=== PATIENT | female | born 1955 | race Two or more races ===

== ENCOUNTER → 2024-12-24 | Outpatient (CLI) | payer MEDICARE, SELFPAY ==
--- NOTE | 2024-12-24 11:00 | XR_ITS ---
Examination: Screening digital mammography, bilateral Computer aided detection 3-D breast Tomosynthesis, bilateral Date and time of exam: December 24, 2024 1031 hours Compared to mammograms dating to August 14, 2013 Indication: Screening Technique: Nonmagnified MLO, CC views of the breasts to been obtained, reconstructed from 3-D Tomosynthesis images. R2 computer aided detection program utilized for evaluation of suspicious masses and/or abnormal calcifications. 3-D Tomosynthesis images obtained. Findings: Scattered areas of fibroglandular density. Benign calcifications. No interval suspicious masses Impression: BI-RADS category II: Benign Findings. Recommend 1 year follow-up mammogram.
== END | disposition home or self-care (01) ==
LOC: CDIM 10:23
PROVIDERS: Referring Provider Internal Medicine; Visit Provider Internal Medicine
DX: Z12.31 Encounter for screening mammogram for malignant neoplasm of breast (principal); R92.323 Mammographic fibroglandular density, bilateral breasts; R92.1 Mammographic calcification found on diagnostic imaging of breast
CPT/HCPCS: 77063; 77067

== ENCOUNTER 2025-04-17 10:25 | Emergency (ER) | payer MEDICARE, SELFPAY ==
[2025-04-17 11:37] VITALS: BP 145/85; PULSE 60; RESP 18; TEMP 36.8; O2SAT 96; BMI 30.3
--- NOTE | 2025-04-17 11:41 | EKG_ITS ---
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1955 Requested By: Horacio Copeland Order Number: [id number] Reading MD: Horacio Copeland Measurements Intervals Moffit Rate: 66 P: 7 ID: [id number] QRS: -13 QRSD: 95 T: -2 QT: 380 QTc: 400 Interpretive Statements SINUS RHYTHM LOW QRS VOLTAGE IN PRECORDIAL LEADS [QRS DEFLECTION < 1.0 mV IN CHEST LEADS] INCOMPLETE RIGHT BUNDLE BRANCH BLOCK [90+ ms QRS DURATION, TERMINAL R IN V1/V2, 40+ ms S IN I/aVL/V4/V5/V6] MODERATE VOLTAGE CRITERIA FOR LVH, CONSIDER NORMAL VARIANT [MEETS CRITERIA IN ONE OF: R(aVL), S(V1), R(V5), R(V5/V6)+S(V1)] POSSIBLE ANTERIOR MYOCARDIAL INFARCTION , OF INDETERMINATE AGE [30 ms Q WAVE IN V3/V4, OR R < 0.2 mV IN V4] Compared to ECG 03/11/2021 07:19:43 Incomplete right bundle-branch block now present Myocardial infarct finding now present /store/S0/[id number]/ecg/[id number].pdf
--- NOTE | 2025-04-17 11:41 | XR_ITS ---
Examination: CT brain head without contrast. 2-D sagittal coronal reconstructions Date and time of exam: 04/17/2025 at 12:14 p.m.: CTDI: vol (mGy): 52.3 DLP: (mGycm): 1063 CLINICAL HISTORY: Onset dizziness today Comparison study none 08/05/2012 Technique: Multiple CT axial sections of the brain have been obtained, 5 mm slice thickness. Contrast has not been administered. 2-D sagittal, coronal reconstructions have been obtained Low dose protocols were performed. One or more of the following dose reduction techniques were used; automated exposure control, adjustment of the mA and/or KV according to patient size, use of iterative reconstruction technique. Findings: No significant ventricular enlargement. Intra-axial or extra-axial hemorrhage density is not seen. No mass effect or midline shift Basal cisterns are not remarkable. Fourth ventricle is midline. Cranial vault intact. Impression: Negative for acute hemorrhage, mass effect or midline shift 2 there is a 17 mm diameter mucous retention cyst in the left maxillary sinus and there is a very tiny dependent layer of fluid posteriorly in the left sphenoid sinus
--- NOTE | 2025-04-17 11:43 | EDNOTE_ITS ---
ED Dizzyness RME/HPI General Chief Complaint: Dizziness Stated Complaint: DIZZINESS & VOMITING X5 DAYS Time Seen by Provider: 04/17/25 11:20 Arrival date/time: 04/17/25 10:25 69-year-old female patient with significant history of hypertension, was advised by PCP to read told to emergency room for worsening dizziness. Patient has been having dizziness for the last 5 days, described as everything spinning, with headache more on the posterior headache. Severity mild. Patient was seen by PCP and was prescribed meclizine which the patient was taking. No improvement of the dizziness and vertigo noted. Patient denies any trauma denies any fall denies any other slurring speech patient is ambulatory unaided. Was also noted to be vomiting on and off for the last 5 days. Denies any diarrhea denies any chest pain or abdominal pain Related Data Home Medications ?Medication ?Instructions ?Recorded ?Confirmed ascorbic acid (vitamin C) 500 mg 500 mg PO QDAY 03/11/21 capsule,extended release (Vitamin C) lisinopril 5 mg tablet 5 mg PO QDAY 03/11/21 Previous Rx's ?Medication ?Instructions ?Recorded oxycodone-acetaminophen 5 mg-325 1 tab PO Q8H PRN pain #14 tabs 03/11/21 mg tablet (Percocet) tamsulosin 0.4 mg capsule (Flomax) 0.4 mg PO QDAY #30 caps 03/11/21 amoxicillin 875 mg-potassium 1 tab PO BID #14 tabs 04/30 clavulanate 125 mg tablet fexofenadine 60 mg-pseudoephedrine 1 tab PO Q12H PRN n chato congestion 04/17/25 ER 120 mg tablet,ext.release,12 hr #14 tabs (Olive-D 12 Hour) Allergies Allergy/AdvReac Type Severity Reaction Status Date / Time No Known Allergies Allergy Verified 03/11/21 09:25 Review of Systems Review of Systems Narrative Review of Systems: Review of system reviewed and within normal limits except mentioned in HPI ED Exam Narrative Physical exam: VITAL SIGNS: Reviewed. GENERAL APPEARANCE: Alert and interactive, follows commands, no acute distress, HEAD AND FACE: Non-traumatic. ENT: PERRL, pink conjunctivitis, eyelid no trauma, Mucous membrane moist. No nystagmus noted NECK: Supple, nontender, no nuchal rigidity. CHEST: No tenderness, no crepitus, no paradoxical movement, no retractions. LUNGS: Clear, well ventilated, symmetric, no rales, no wheezing, no ronchi, no stridor, good breath sounds bilaterally. HEART: Regular rate, regular rhythm, no murmur, no gallops. ABDOMEN: Soft, positive bowel sounds, nondistended, no guarding, nontender, no rebound, no masses, RECTAL: Deferred. GENITAL: Deferred. NEUROLOGICAL: Gross motor function intact sensory function intact, Appropriate for age. Negative Romberg's test MUSCULOSKELETAL: low back nontender, full range of motion. EXTREMITIES: Nontender, full range of motion. SKIN: Color pink, dry, no rash, no lacerations, no abrasions, no contusions. LYMPHATICS: Deferred. Course Quality Measures none Orders Category Date Time Status EKG (ED ONLY) *Do not use* NOW Care 04/17/25 11:[address] head/brain wo con Stat Exams 04/17/25 11:41 Completed EKG (ED Only) Stat Exams 04/17/25 11:41 Draft CBC Stat Lab 04/17/25 11:52 Completed Comprehensive Metabolic Panel Stat Lab 04/17/25 11:52 Completed Partial Thromboplastin Time Stat Lab 04/17/25 11:52 Completed Troponin I Stat Lab 04/17/25 11:52 Completed Urinalysis, C/S if Indicated Stat Lab 04/17/25 12:26 Completed Acetaminophen Tab [Tylenol ES Tab] Med 04/17/25 11:42 Discontinued 1,000 mg PO X1 ONE Ondansetron Odt [Zofran Odt] Med 04/17/25 11:42 Discontinued 4 mg PO X1 ONE Ringers Lactated 1000 ml [Lactated Ringers] 1,000 ml Med 04/17/25 11:42 Discontinued IV 999 mls/hr Scopolamine [Transderm-Scop Patch] Med 04/17/25 11:42 Discontinued 1 mg TOP X1 ONE Vital Signs Vital signs: Vital Signs Temperature 98.3 F 04/17/25 11:37 Pulse Rate 60 04/17/25 11:37 Respiratory Rate 18 04/17/25 11:37 Blood Pressure 145/85 H 04/17/25 11:37 Pulse Oximetry (%) 96 04/17/25 11:37 Oxygen Delivery Method Room Air 04/17/25 11:37 Dizziness MDM Narrative MDM Narrative:: 69-year-old female patient with significant history of hypertension, was advised by PCP to read told to emergency room for worsening dizziness. Patient has been having dizziness for the last 5 days, described as everything spinning, with headache more on the posterior headache. Severity mild. Patient was seen by PCP and was prescribed meclizine which the patient was taking. No improvement of the dizziness and vertigo noted. Patient denies any trauma denies any fall denies any other slurring speech patient is ambulatory unaided. Was also noted to be vomiting on and off for the last 5 days. Denies any diarrhea denies any chest pain or abdominal pain Patient's laboratory workup came back normal including troponin which is normal, EKG showed normal sinus rhythm, ventricular rate of [address] segment elevation or depression noted. CT scan of the head came back with no acute pathology except for retention cyst in the left maxillary sinus and sphenoid sinusitis. Patient was given a copy of her CT scan. Patient will be prescribed home on Augmentin and Olive-D. Patient was given scopolamine patch with significant improvement of symptoms. Patient data External records reviewed:: None Clinical information provided by:: patient Social determinants that could affect healthcare access:: none Patient has the following chronic illnesses:: Hypertension How is presenting disease/condition affected by chronic disease/condition?: uneffected by Evaluation data The following diagnostics were reviewed and interpreted by me:: lab results, radiology exam(s) and EKG tracing(s) Lab and/or radiology exams considered but not ordered:: None Interpretation Summary: See above Medications / Prescriptions Medications or Prescriptions considered but not ordered:: None Medication administrations:: Medication Administration History Discontinued Medications Acetaminophen (Acetaminophen 500 Mg Tablet) 1,000 mg PO X1 ONE Stop: 04/17/25 11:43 Last Admin: 04/17/25 12:27 Dose: 1,000 mg Documented By: Lactated Ringer's (Lactated Ringers) 1,000 mls @ 999 mls/hr IV .Q1H1M ONE Stop: 04/17/25 12:42 Ondansetron HCl (Ondansetron Odt 4 Mg Tabrap) 4 mg PO X1 ONE; Protocol Stop: 04/17/25 11:43 Last Admin: 04/17/25 12:28 Dose: 4 mg Documented By: Scopolamine (Scopolamine 1 Mg Tdsy) 1 mg TOP X1 ONE Stop: 04/17/25 11:43 Last Admin: 04/17/25 12:27 Dose: 1 mg Documented By: Scopolamine patch, Tylenol Zofran and IV fluids Consultations Consultation(s) initiated? (list below): No Diagnosis Dizziness Differential Diagnosis: benign paroxysmal positional vertigo and other (Vertigo, sinusitis) Most likely diagnosis given after review of the tests above:: Mucous retention cyst maxillary sinus, right, sinusitis sphenoid Admission Indicated Admission indicated?: not indicated Admission Request Was there a request for admission?: No Disposition Plan Disposition Plan: Discharge Discharge Attestation Discharge Attestation: The patient was given an opportunity to ask questions and understood the discharge instructions. Discharge instructions specifically effects, indications for sooner follow up or return to the emergency department, and the expected course of current diagnosis. Patient condition: Stable Discharge Plan Plan Patient Disposition: HOME (Self Care) Discharge Disposition comment: stable Prescriptions/Referrals Prescriptions/Med Rec: New amoxicillin-pot clavulanate 875-125 mg tablet 1 tab PO BID Qty: 14 0RF fexofenadine-pseudoephedrine [Olive-D 12 Hour] 60-120 mg tablet extended release 12 hr 1 tab PO Q12H PRN (Reason: nasal congestion) Qty: 14 0RF No Action tamsulosin [Flomax] 0.4 mg capsule 0.4 mg PO QDAY Qty: 30 0RF oxycodone-acetaminophen [Percocet] 5-325 mg tablet 1 tab PO Q8H MDD 4 PRN (Reason: pain) Qty: 14 0RF lisinopril 5 mg tablet 5 mg PO QDAY ascorbic acid (vitamin C) [Vitamin C] 500 mg Capsule, Extended Release 500 mg PO QDAY Referrals: Avelina Cramer MD [Primary Care Provider] - In 1 week Problem List Clinical Impression: Vertigo, Mucous retention cyst of maxillary sinus, Sinusitis Patient/Caregiver Discharge Instructions Discharge Activity: activity as tolerated Education Materials: Causes of Sinusitis Additional Instructions: Thank you for the opportunity for serving you today. You are stable for discharged . You are advised to: Follow-up with your PCP in 1 to 2 days Return to ED for worsening of symptoms Increase oral fluids Take medication as prescribed Please remove your scopolamine patch in 3 days Print Language: Tunisian Stand Alone Forms: [employer] Award Info., Patient Portal Info Letter PA/ASSOCIATE [employer]ES Supervising Physician PA/ASSOC[employer]ATE [employer] Supervising Physician: MD Claudia
[2025-04-17 12:03] LABS: Basophils # (Auto) 0.0 Thou/mm3 (0.0-0.2); Basophils % (Auto) 1 % (0-2.5); Eosinophils # (Auto) 0.2 Thou/mm3 (0.0-0.5); Eosinophils % (Auto) 4 % (0-10); Hematocrit 39.1 % (36.0-46.0); Hemoglobin 13.0 g/dL (12.0-16.0); Immature Granulocytes Auto 0.01 Thou/mm3 (0.00-0.00); Lymphocytes # (Auto) 2.0 Thou/mm3 (1.0-4.8); Lymphocytes % (Auto) 35 % (10-50); Mean Corpuscular HGB Conc 33.2 g/dl (31.0-37.0); Mean Corpuscular Hemoglobin 31.3 pg (25.0-35.0); Mean Corpuscular Volume 94 fL (80-100); Monocytes # (Auto) 0.4 Thou/mm3 (0.0-0.8); Monocytes % (Auto) 7 % (0-12); Neutrophils # (Auto) 3.0 Thou/mm3 (1.8-7.7); Neutrophils % (Auto) 53 % (37-80); Nucleated Red Blood Cell # 0.00 Thou/mm3 (0.00-0.00); Nucleated Red Blood Cell % 0 /100 WBC (0); Platelet Count 168 Thou/mm3 (140-440); RDW Standard Deviation 45.1 fL (36.4-46.3); Red Blood Count 4.16 Miln/mm3 (4.00-5.20); White Blood Count 5.7 Thou/mm3 (3.6-11.0)
[2025-04-17 12:24] LABS: Partial Thromboplastin Time 31.7 Seconds (22.0-36.0)
[2025-04-17] MEDS: ACETAMINOPHEN 500 MG TABLET 1000 MG PO (12:27)
[2025-04-17] MEDS: SCOPOLAMINE 1 MG TDSY TOP (12:27)
[2025-04-17] MEDS: ONDANSETRON ODT 4 MG TABRAP PO (12:28)
[2025-04-17 12:36] LABS: Collection Type, Urine Clean Catch
[2025-04-17 12:41] LABS: Bilirubin,Urine Negative (Negative); Blood,Urine Trace (Negative); Clarity,Urine Clear (Clear/Hazy); Color,Urine Colorless (Lt Yel-Yel); Culture Indicated,Urine Not Indicated; Glucose, Urine Negative (Negative); Ketones,Urine Negative (Negative); Leukocyte Esterase,Urine Negative (Negative); Nitrite,Urine Negative (Negative); PH,Urine 6.5 (5.0-7.0); Protein,Urine Negative (Neg - Trace); RBC,Urine 2 /hpf (0-3); Specific Gravity,Urine 1.007 (1.001-1.035); Squamous Epithelial Cell,Urine < 1 /hpf (0-5); Urobilinogen,Urine Negative mg/dL (0.0-1.0); WBC,Urine 1 /hpf (0-5)
[2025-04-17 12:48] LABS: Alanine Aminotransferase < 7 U/L (10-49); Albumin, Serum 4.2 gm/dL (3.4-4.8); Albumin/Globulin Ratio 1.2 (1.2-2.2); Alkaline Phosphatase 53 U/L (46-116); Anion Gap 7 (7-16); Aspartate Amino Transferase 15 U/L (0-34); BUN/Creatinine Ratio 14 Ratio (12-20); Bilirubin,Total 0.4 mg/dL (0.3-1.2); Blood Urea Nitrogen 11 mg/dL (9-23); Calcium 9.5 mg/dL (8.3-10.6); Calcium (Corrected) 9.5 mg/dL (8.5-10.1); Carbon Dioxide 26.0 mMol/L (20.0-31.0); Chloride 108 mMol/L (98-107); Creatinine (Component) 0.8 mg/dL (0.6-1.3); Estimated Creatinine Clearance 67.4 mL/min (>60); Globulin 3.5 gm/dL (2.3-3.5); Glucose 93 mg/dL (74-106); Osmolality,Calculated 280 (275-295); Potassium 4.3 mMol/L (3.4-5.1); Sodium 141 mMol/L (136-145); Total Protein 7.7 gm/dL (5.7-8.2); Troponin I < 0.020 ng/mL (0.0-0.045); eGFR > 60 See Note
== END 2025-04-17 14:03 | disposition home or self-care (01) ==
PROVIDERS: Nurse Practitioner Family; Emergency Provider Family Medicine; PCP Internal Medicine
DX: J34.1 Cyst and mucocele of nose and nasal sinus (principal); J32.3 Chronic sphenoidal sinusitis; I45.10 Unspecified right bundle-branch block; I10 Essential (primary) hypertension
CPT/HCPCS: 36415; 70450; 80053; 81001; 84484; 85025; 85730; 93005; 99283; Q0162; A9270